=== PATIENT | male | born 1960 | race Caucasian/White ===

== ENCOUNTER 2017-05-11 11:20 | Day surgery (SDC) | payer BC ==
[2017-05-06 09:42] VITALS: BMI 25.8
[~2017-05-11 11:20] MED LIST: LACTATED RINGERS 1,000 ML IV SCH; SODIUM CHLORIDE 0.9% 1,000 ML IV SCH
[2017-05-11] MEDS ORDERED: diphenhydrAMINE 50 MG/ML 1 ML VIAL ONE (12:13)
[2017-05-11] MEDS ORDERED: HEPARIN SODIUM,PORCINE 5,000 UNIT/ML 1 ML VIAL ONE (12:13)
[2017-05-11] MEDS ORDERED: PROTAMINE SULFATE 10 MG/ML 5 ML VIAL IV ONE (12:13)
[2017-05-11] MEDS ORDERED: ISOPROTERENOL 250 MCG/1.25 ML SYR IV ONE (12:13)
[2017-05-11] MEDS ORDERED: MIDAZOLAM 2 MG/2 ML VIAL ONE (12:13)
[2017-05-11] MEDS ORDERED: HYDROmorphone (PF) 1 MG/ML ONE (12:13)
[2017-05-11] MEDS ORDERED: fentaNYL (PF) 50 MCG/ML 2 ML AMP ONE (12:13)
[2017-05-11] MEDS ORDERED: GLYCOPYRROLATE 0.2 MG/ML 2 ML VIAL ONE (12:13)
[2017-05-11] MEDS ORDERED: PHENYLEPHRINE-0.9% NACL SYG 1 MG/10 ML SYRINGE ONE (12:13)
[2017-05-11] MEDS ORDERED: PROPOFOL 10 MG/ML 20 ML VIAL IV ONE (12:13)
[2017-05-11] MEDS ORDERED: FUROSEMIDE 10 MG/ML 2 ML VIAL ONE (12:13)
[2017-05-11] MEDS ORDERED: LIDOCAINE 2% INJ 20 MG/ML SQ ONE (13:06)
[2017-05-11] MEDS ORDERED: HEPARIN SODIUM,PORCINE/D5W PMX 25,000 UNIT in DEXTROSE/WATER 1 500ML.BAG IV ONE (13:38)
[2017-05-11] MEDS ORDERED: HEPARIN SODIUM (1,000 UNIT/ML) 1,000 UNIT in SODIUM CHLORIDE 0.9% 1,000 ML IRRIGATION ONE (14:31)
[2017-05-11] MEDS ORDERED: SODIUM CHLORIDE 0.9% 1,000 ML IV ONE (15:00)
[2017-05-11] MEDS ORDERED: ADENOSINE 3 MG/ML 4 ML VIAL IVP ONE (15:22)
[2017-05-11] MEDS ORDERED: ACETAMINOPHEN TAB 325 MG TAB PO PRN (16:03)
[2017-05-11] MEDS ORDERED: HYDROcodone/APAP 5-325MG 1 EACH TAB PO PRN (16:03)
[2017-05-11] MEDS ORDERED: ACETAMINOPHEN IV (For NPO) 1,000 MG/100 ML VIAL IVPB ONE (16:41)
--- NOTE | 2017-05-11 17:54 | LTR ---
DATE OF SERVICE: 05/11/17 Dear Roel: I had the pleasure of seeing Henri Monroy in electrophysiology followup. 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 The first RF delivery resulted in termination of the tachycardia and elimination of the pathway with 4.7 seconds. I will now stop Verapamil completely. More importantly, an intracardiac echocardiography was performed during the procedure and this revealed myopathic ventricle. In addition, on the stress test, he had very frequent PVCs and ventricular ectopy consistent with cardiomyopathy. I will speak to the patient regarding complete abstinence from alcohol consumption as well as other stimulants. Thank you for entrusting me in the care of your patient. With warm regards, Sincerely, GIANNI / JESUS: [id number] /
--- NOTE | 2017-05-11 17:54 | CE ---
CARDIAC ELECTROPHYSIOLOGY REPORT This is a 57-year-old gentleman who was referred by Dr. Roel Astudillo for recurrent palpitations. He was brought in for diagnostic EP study. DESCRIPTION OF PROCEDURE: The patient is brought to the EP lab in a fasting state. Written informed consent was obtained prior to the procedure. The left shoulder area was prepped and draped as per protocol. 1% lidocaine was used for local anesthesia. A 6-[place] sheath was placed in the left axillary vein. Via these [place] polar catheter was positioned in coronary sinus for coronary sinus pacing and recording. As soon as the coronary sinus catheter was placed, the patient went into SVT narrow complex. There was an eccentric activation and the distal CS was earliest atrial electrogram during SVT consistent with left-sided accessory pathway retrograde conducting. Therefore the coronary sinus catheter was pushed further out to brackets area of earliest retrograde activity and this was in the posterior lateral/lateral mitral anulus. Next the venous sheaths were placed in the right and left femoral veins and diagnostic catheters were placed in the right heart and later intracardiac echo catheter was placed and a long sheath was placed along with mapping ablation catheter. Sinus cycle length 781 milliseconds. MO interval 136 milliseconds QRS 104 milliseconds, QT 369 milliseconds. AH interval and HV intervals were normal. AV node Wenckebach block 300 milliseconds, no delta waves. No slow pathway conduction. VA Wenckebach block at 250 milliseconds. The tachycardia was induced with straight pacing from the HRA as well as from the CS very easily. This tachycardia was narrow QRS tachycardia with earliest activation in the lateral/posterolateral mitral annulus. HIS refractory PVCs result in advancement of the tachycardia. The VA AV response was noted after post ventricular pacing. This was consistent with orthodromic re-entry utilizing left lateral/posterior lateral excessive pathway. Intracardiac echocardiography was performed. The interatrial septum was identified. Of note, the LV appeared myopathic globally. Left to right transseptal catheterization was performed. RA pressure 21/3 mmHg LV pressure 35/3 mmHg. Tachycardia was induced and mapping was performed during orthodromic reentry and the earliest activation was identified and the first RF lesion resulted in termination of the tachycardia and elimination of the left lateral accessary pathway within in less than 4.7 seconds. RF ablation was applied around the successful site and an EP study was also again performed. Isuprel wide-open was started and the EP study was performed. AV node Wenckebach block 230 milliseconds VA Wenckebach block 250 milliseconds. The retrograde conduction was midline. With ventricular extrastimulation of the ventricle the retrograde conduction was midline and decremental. Burst stimulation was performed. Extra stimulation was performed from multiple sites including the atria and the ventricles. No SVT was induced. IV adenosine was used during ventricular pacing and VA block was also noted. We waited for about 15 minutes post successful ablation before all catheters were removed. There was no evidence for the left lateral excessive pathway and there was no evidence for SVT. No other tachycardias were induced. At the end of the procedure the intracardiac echocardiography revealed absence of any pericardial effusion but definitely myopathic left ventricle. RESULT: 1. 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 2. Status post successful ablation of the left lateral accessory pathway with termination of the tachycardia within less than 4.7 seconds. 3. Globally myopathic left ventricle via intracardiac echo. 4. No other tachycardias induced. PLAN: 1. Stop verapamil. 2. Continue aspirin. 3. Consideration for leeann inhibitors and beta blockers. 4. Discontinuation of alcohol consumption and stimulants completely. MMODL / IJN: [id number] /
[2017-05-11] MEDS ORDERED: ACETAMINOPHEN IV (For NPO) 1,000 MG in EMPTY BAG 1 BAG IVPB ONE (18:30)
[2017-05-11 18:38] VITALS: RESP 18
[2017-05-12 06:55] VITALS: BP 133/92; PULSE 90; TEMP 97.1
--- NOTE | 2017-05-12 08:40 | DS ---
DISCHARGE SUMMARY Mr. Monroy has recurrent supraventricular tachycardia since the age of 17 and has had thousands of episodes of palpitations. He underwent an SVT ablation for orthodromic re-entry. The left lateral accessary pathway was ablated successfully and the tachycardia was rendered noninducible. It took 4.6 seconds to eliminate the accessary pathway with RF. Verapamil has been discontinued. He is ambulating in the halls, doing well. He has no groin problems. No dizziness, lightheadedness, palpitations or chest pain. Heart sounds are normal. Breath sounds are clear. Groins have healed well. No JVD. However, intracardiac echocardiography did reveal cardiomyopathy and he drinks regularly. He also smokes regularly. He is also on stimulant drinks. I had a detailed discussion with his daughter yesterday and I had a detailed discussion with him this morning in the presence of 2 nurses. SUGGEST: 1. Stop verapamil. 2. He needs complete abstinence from alcohol, otherwise, his cardiomyopathy will be progressive and subsequently he will develop heart failure symptoms. 3. Avoid all stimulant drinks. 4. Smoking cessation. Follow up with Dr. Bauer in about within 2 weeks. I will make his appointment in followup to check his access site. MMODL / IJN: [id number] /
== END 2017-05-12 09:35 | disposition home or self-care (01) ==
LOC: CATHEP 11:20 → 6SEL 15:57 → CATHEP 05-12 09:35
PROVIDERS: ATTEND Internal Medicine Clinical Cardiac Electrophysiology
DX: I47.1 Supraventricular tachycardia (principal); R00.2 Palpitations; I42.9 Cardiomyopathy, unspecified; I51.7 Cardiomegaly; F17.210 Nicotine dependence, cigarettes, uncomplicated; Z79.82 Long term (current) use of aspirin; Z79.899 Other long term (current) drug therapy; J30.1 Allergic rhinitis due to pollen
CPT/HCPCS: 85347; 93462; 93623; 93662; 93613; 93653; 84443; C1894; C1769 ×3; C1730 ×3; C1759; C1893; C1732; J2001; J2250; J2720; J1200; J1644 ×3; J1940; J3010; J1170; J0153; J0131; J2370; J2704

== ENCOUNTER → 2018-04-15 | Outpatient (CLI) | payer MEDICAID ==
[~2018-04-15] MED LIST changes: -LACTATED RINGERS 1,000 ML IV SCH; +REGADENOSON 0.4 MG/5 ML SYRINGE IV ONE; -SODIUM CHLORIDE 0.9% 1,000 ML IV SCH
--- NOTE | 2018-04-15 11:08 | P.STRESS ---
- Stress Test Note Stress Test Results/Findings: Exam Performed: NM stress lexiscan cardiolite Exam Date: 04/15/18 Reason for Exam: ABLATION Height: 5 ft 7 in Weight: 74.843 kg Protocol: LEXISCAN Stage: NA Duration of Exercise: NA Resting Heart Rate: 84 Resting Blood Pressure: 134/94 Maximum Achieved Heart Rate: 95 Maximum Achieved Blood Pressure: 134/94 85% PMHR: NA 100% PMHR: NA METS: NA Technologist Comment: Stress Test Results/Findings: This is a 57-year-old gentleman with history of smoking being evaluated for symptoms of chest pain and shortness of breath and palpitations. Stress data: Baseline EKG showed sinus rhythm with a diffuse ST-T abnormalities and evidence of left ventricle hypertrophy. Blood pressure at rest is 134/94 with pulse rate of 84. A standard dose of Lexiscan was infused patient continued to have PVCs. There've been more pronounced ST-T changes from baseline, but not diagnostic for ischemia. He Final impression: #1. Nondiagnostic Lexiscan stress test because of baseline EKG abnormalities. #2. Report on the nuclear images to begin by the radiologist.
--- NOTE | 2018-04-15 12:09 | NM ---
EXAMINATION TYPE: NM stress lexiscan cardiolite DATE OF EXAM: 04/15/2018 COMPARISON: NONE HISTORY: I49.3 Ventricular premature depolarization TECHNIQUE: After the intravenous administration of 10.4 mCi Tc 99m Sestamibi - Cardiolite resting SP ECT images acquired 45 minutes post injection. The patient received 0.4mg Lexiscan, 24.6 mCi Tc 99m Sestamibi - Stress images obtained [address] injection FINDINGS: Review of stress and rest SPECT images demonstrates fixed defects involving the cardiac apex, inferio r wall and portions of the anterior wall. Gated analysis shows normal wall motion with an estimated l eft ventricular ejection fraction of 19 %. Left ventricular enlargement with areas of hypokinesia and akinesia. IMPRESSION: No scintigraphic evidence for reversible ischemia. Diminished ejection fraction of 19% with a left ve ntricular enlargement and wall motion abnormalities.
== END ==
LOC: RADNMMAIN 08:23
PROVIDERS: ATTEND Internal Medicine Clinical Cardiac Electrophysiology
DX: I42.0 Dilated cardiomyopathy (principal); I49.3 Ventricular premature depolarization
CPT/HCPCS: 93017; 78452; A9500; J2785